=== PATIENT | female | born 1955 | race Caucasian/White ===

== ENCOUNTER 2019-05-19 07:13 | Day surgery (SDC) | payer MEDICARE, OTHER ==
[~2019-05-19 07:13] MED LIST: Cefuroxime 10 MG/ML SYRINGE EYERT SCH; Lidocaine 1% PF 2 ML SDV INJECT SCH; Pilocarpine 4% Ophth Soln 15 ML Bot EYERT SCH
[2019-05-19] MEDS: Polymyxin B/Trimethoprim 10 ML Bottle EYERT SCH ×3 (07:51→09:32)
[2019-05-19] MEDS: Brimonidine 0.2% Ophth Soln 5 ML Bottle EYERT SCH ×3 (07:57→09:32)
--- NOTE | 2019-05-19 07:57 | PCM.PREANE ---
Preanesthetic Assessment - Anesthesia/Transfusion/Family Hx Anesthesia History: Prior Anesthesia Without Reaction Family History of Anesthesia Reaction: No Transfusion History: No Prior Transfusion(s) - Review of Systems General: No Symptoms Pulmonary: Other (KERMIT-CPAP) Cardiovascular: Other (HTN) Gastrointestinal: No Symptoms Neurological: No Symptoms Other: Reports: None - Physical Assessment NPO Status Date: 05/18/19 NPO Status Time: 21:30 Vital Signs: Last Vital Signs Temp 36.7 C 05/19/19 07:25 Pulse 72 05/19/19 07:25 Resp 20 05/19/19 07:25 BP 127/77 05/19/19 07:25 Pulse Ox 93 L 05/19/19 07:25 Height: 1.63 m Weight: 89.811 kg ASA Class: 2 Mental Status: Alert & Oriented x3 Airway Class: Mallampati = 2 Dentition: Reports: Normal Dentition Thyro-Mental Finger Breadths: 2 Mouth Opening Finger Breadths: 3 ROM/Head Extension: Full Lungs: Clear to Auscultation, Normal Respiratory Effort Cardiovascular: Regular Rate, Regular Rhythm - Allergies Allergies/Adverse Reactions: Allergies Allergy/AdvReac Type Severity Reaction Status Date / Time No Known Allergies Allergy Verified 05/18/19 14:15 - Blood Blood Available: No Product(s) Available: None - Anesthesia Plan Pre-Op Medication Ordered: None - Acknowledgements Anesthesia Type Planned: MAC Pt an Appropriate Candidate for the Planned Anesthesia: Yes Alternatives and Risks of Anesthesia Discussed w Pt/Guardian: Yes Pt/Guardian Understands and Agrees with Anesthesia Plan: Yes PreAnesthesia Questionnaire HEENT History: Reports: Impaired Vision Cardiovascular History: Reports: Hypertension Respiratory History: Reports: Sleep Apnea (cpap at night) Gastrointestinal History: Reports: None Genitourinary History: Reports: None 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 Musculoskeletal History: Reports: Other (See Below) Other Musculoskeletal History: lichen planus Neurological History: Reports: Other (See Below) Other Neuro History: torticollis, spinal tap Psychiatric History: Reports: None Endocrine/Metabolic History: Reports: Osteopenia Hematologic History: Reports: None Immunologic History: Reports: None Oncologic (Cancer) History: Reports: None Dermatologic History: Reports: Other (See Below) Other Dermatologic History: basal cell carcinoma - Past Surgical History Head Surgeries/Procedures: Reports: None HEENT Surgical History: Reports: LASIK Cardiovascular Surgical History: Reports: None Respiratory Surgical History: Reports: None GI Surgical History: Reports: Colonoscopy Female Surgical History: Reports: D&C Male Surgical History: Reports: None Endocrine Surgical History: Reports: None Neurological Surgical History: Reports: None Oncologic Surgical History: Reports: None Dermatological Surgical History: Reports: None - HOME MEDS Home Medications: Home Meds Calcium Carb/Vitamin D3/Vit K1 [Calcium + D Soft Chewable Tab] 1 tab PO DAILY [History] Glucosam/Chondr/Collagn/Hyalur [Glucosamine & Chondroitin Cap] 2 cap PO DAILY [History] Ibuprofen 600 mg PO TID PRN 01/23/18 [History] Lisinopril 20 mg PO DAILY 01/23/18 [History] Multivitamin [Poly-Vitamin] 1 tab PO DAILY 01/23/18 [History] Onabotulinumtoxina [Botox] 1 dose IM Q120D PRN 05/18/19 [History] - CURRENT (IN HOUSE) MEDS Current Meds: Current Medications Brimonidine Tartrate (Alphagan 0.2% Ophth Soln) 0 ml EYERT ASDIRECTED MARJAN Stop: 05/19/19 18:00 Cefuroxime Sodium (Zinacef) 0 mg EYERT ASDIRECTED MARJAN Stop: 05/19/19 18:00 Lidocaine HCl (Xylocaine-Mpf 1%) 1 ml INJECT ASDIRECTED MARJAN Stop: 05/19/19 18:00 Phenylephrine HCl (Frandy-Synephrine 2.5% Ophth Soln) 0 ml EYERT ASDIRECTED MARJAN Stop: 05/19/19 18:00 Pilocarpine HCl (Pilocar 4% Ophth Soln) 0 ml EYERT ASDIRECTED MARJAN Stop: 05/19/19 18:00 Polymyxin/Trimethoprim Sulfate (Polytrim Ophth Soln) 0 ml EYERT ASDIRECTED MARJAN Stop: 05/19/19 18:00 Tetracaine HCl (Tetracaine 0.5% Steri-Unit Herlinda) 0 ml EYERT ASDIRECTED MARJAN Stop: 05/19/19 18:00 Tropicamide (Mydriacyl 1% Ophth Soln) 0 ml EYERT ASDIRECTED MARJAN Stop: 05/19/19 18:00
[2019-05-19] MEDS: Phenylephrine 2.5% Ophth Soln 2 ML Bot EYERT SCH ×5 (08:00→09:10)
[2019-05-19] MEDS: Tropicamide 1% Ophth Soln 15 ML Bottle EYERT SCH ×4 (08:08→08:51)
[2019-05-19] MEDS: Tetracaine HCl/PF 0.5% 4 ML Bottle EYERT SCH ×4 (09:00→09:17)
--- NOTE | 2019-05-19 09:36 | PCM48HPAN ---
Post Anesthesia Note - EVALUATION WITHIN 48HRS OF ANESTHETIC Vital Signs in Normal Range: Yes Patient Participated in Evaluation: Yes Respiratory Function Stable: Yes Airway Patent: Yes Cardiovascular Function Stable: Yes Hydration Status Stable: Yes Pain Control Satisfactory: Yes Nausea and Vomiting Control Satisfactory: Yes Mental Status Recovered: Yes Vital Signs: Last Vital Signs Temp 36.7 C 05/19/19 07:25 Pulse 72 05/19/19 07:25 Resp 20 05/19/19 07:25 BP 127/77 05/19/19 07:25 Pulse Ox 93 L 05/19/19 07:25
== END 2019-05-19 09:40 | disposition home or self-care (01) ==
LOC: JD.SDS 07:13
PROVIDERS: ATTEND Ophthalmology
DX: H25.811 Combined forms of age-related cataract, right eye (principal); H21.81 Floppy iris syndrome; H21.41 Pupillary membranes, right eye; I10 Essential (primary) hypertension; G47.33 Obstructive sleep apnea (adult) (pediatric); Z98.42 Cataract extraction status, left eye; Z96.1 Presence of intraocular lens; Z99.89 Dependence on other enabling machines and devices; Z79.899 Other long term (current) drug therapy
CPT/HCPCS: 66982; J0697; J2001; C1780

== ENCOUNTER → 2023-12-24 | Day surgery (SDC) | payer MEDICARE, OTHER ==
[~2023-12-24] MED LIST changes: -Cefuroxime 10 MG/ML SYRINGE EYERT SCH; +Dexamethasone 4 MG/ML 5 ML MDV ONE; +Ketorolac 15 MG/ML SDV ONE; -Lidocaine 1% PF 2 ML SDV INJECT SCH; +Lidocaine 2% 5 ML SDV ONE; +Ondansetron 4 MG/2 ML SDV IVPUSH PRN; +Ondansetron 4 MG/2 ML SDV ONE; -Pilocarpine 4% Ophth Soln 15 ML Bot EYERT SCH; +Propofol 200 MG/20 ML SDV ONE; +Sodium Chloride 0.9% 10 ML Syringe FLUSH PRN; +Sodium Chloride 0.9% 10 ML Syringe FLUSH SCH; +fentaNYL 100 MCG/2 ML SDV IVPUSH PRN; +fentaNYL 100 MCG/2 ML SDV ONE
[2023-12-24] MEDS: Lactated Ringers 1,000 ML IV SCH (06:50)
[2023-12-24] MEDS: HYDROmorphone 0.5 MG/0.5 ML Syringe IVPUSH PRN (08:55)
[2023-12-24] MEDS: Lidocaine 1% 30 ML SDV ONE (12:40)
== END | disposition home or self-care (01) ==
LOC: JD.SDS 06:25
PROVIDERS: ATTEND Obstetrics & Gynecology
DX: N84.0 Polyp of corpus uteri (principal); I10 Essential (primary) hypertension; Z79.899 Other long term (current) drug therapy
CPT/HCPCS: 58558; 88305; J1100; J1170; J1885; J2405; J2704; J3010; J7120; 00940; J3490